=== PATIENT | male | born 1975 ===

== ENCOUNTER 2017-03-07 18:47 | Emergency (ER) | payer OTHER ==
--- NOTE | 2017-03-07 20:16 | ED PDOC ---
HPI: Psych/Substance Abuse Time Seen by Provider: 03/07/17 19:06 Chief Complaint (Nursing): Substance Abuse Chief Complaint (Provider): Substance Abuse History Per: Patient History/Exam Limitations: no limitations Onset/Duration Of Symptoms: Hrs Current Symptoms Are (Timing): Still Present Modifying Factor(s): Other (PCP) Severity: Mild Associated Symptoms: denies: Suicidal Thoughts, Suicidal Plan Additional Complaint(s): 42 y/o male was found by EMS found acting strangely on the street [employer]. Patient admits to using PCP. Denies SI, HI, or somatic complaints. Past Medical History Reviewed: Historical Data, Nursing Documentation, Vital Signs Vital Signs: Last Vital Signs Temp Pulse 110 H 03/07/17 19:15 Resp 19 03/07/17 19:15 BP 160/116 H 03/07/17 19:15 Pulse Ox 95 03/07/17 19:15 - Family History Family History: States: Unknown Family Hx - Allergies Allergies/Adverse Reactions: Allergies Allergy/AdvReac Type Severity Reaction Status Date / Time No Known Allergies Allergy Verified 03/07/17 19:16 Review of Systems ROS Statement: Except As Marked, All Systems Reviewed And Found Negative Constitutional: Positive for: Other (PCP use) Psych: Negative for: Suicidal ideation, Other (Homicidal ideation) Physical Exam - Reviewed Nursing Documentation Reviewed: Yes Vital Signs Reviewed: Yes - Physical Exam Appears: Positive for: Well, Non-toxic, No Acute Distress Head Exam: Positive for: ATRAUMATIC, NORMAL INSPECTION, NORMOCEPHALIC Skin: Positive for: Normal Color, Warm, DRY Eye Exam: Positive for: EOMI, PERRL, Other (Dilated pupils) ENT: Positive for: Normal ENT Inspection Neck: Positive for: Normal, Painless ROM Cardiovascular/Chest: Positive for: Regular Rate, Rhythm. Negative for: Murmur Respiratory: Positive for: Normal Breath Sounds. Negative for: Rales, Rhonchi, Wheezing Gastrointestinal/Abdominal: Positive for: Soft. Negative for: Tenderness Neurologic/Psych: Positive for: Alert, Oriented (x3) - ECG O2 Sat by Pulse Oximetry: 95 (RA) Pulse Ox Interpretation: Normal Medical Decision Making Medical Decision Making: Impression: * PCP Abuse Plans: * Reassess 20:30 Pt. is now more calm, vitals improving, drug cessation counseling given, will d/ c home. Scribe Attestation: Documented by Maya cabral, acting as a scribe for Bryce Weber MD Provider Scribe Attestation: All medical record entries made by the Scribe were at my direction and personally dictated by me. I have reviewed the chart and agree that the record accurately reflects my personal performance of the history, physical exam, medical decision making, and the department course for this patient. I have also personally directed, reviewed, and agree with the discharge instructions and disposition. Disposition - Clinical Impression Clinical Impression: PCP abuse - Disposition Referrals: [facility] [Outside] Disposition Time: 20:40 Condition: STABLE Instructions: Polysubstance Abuse (ED) Forms: [facility] (Ukrainian) Print Language: [place]
[2017-03-07 20:39] VITALS: BP 155/99; PULSE 105; RESP 16
[2017-03-07 20:40] VITALS: O2SAT 95
[2017-03-07 21:06] VITALS: TEMP 98.7
== END 2017-03-07 21:08 | disposition home or self-care (01) ==
LOC: H.ER 18:47
DX: F16.10 Hallucinogen abuse, uncomplicated (principal)